=== PATIENT | female | born 1990 | race Caucasian/White ===

== ENCOUNTER 2022-10-31 10:08 | Emergency (ER) | payer BC ==
[2022-10-31 10:47] LABS: Bilirubin Neg (Negative); Blood, Urine 250 (Negative); Clarity Cloudy (Clear); Glucose, Urine (Dipstick) Normal (Negative); Ketone, Urine Negative (Negative); Leukocyte 25 (Negative); Nitrite Negative (Negative); Protein, Urine (Dipstick) 15 mg/dl (Neg-Trace); Specific Gravity, Urine 1.015 (1.005-1.030); Urobilinogen Normal mg/dL (Less than 2)
[2022-10-31] MEDS ORDERED: Acetaminophen 500 MG TAB ONE (11:11)
[2022-10-31 11:12] LABS: %Basophils 0.3 % (0.0-2.0); %Eosinophils 0.3 % (0.0-6.0); %Lymphocytes 30.6 % (18.0-47.0); %Monocytes 6.4 % (0.0-10.0); %Neutrophils 62.1 % (40.0-75.0); Hemoglobin 10.6 g/dL (12.0-15.5); Mean Corpuscular HGB CONC 34.8 g/dL (32.0-36.0); Mean Corpuscular Hemoglobin 31.1 pg (27.0-33.0); Mean Corpuscular Volume 89.4 fl (81.6-98.3); Mean Platelet Volume 11.3 fl (7.4-10.4); Platelet Count 126 10x3/uL (130-400); RBC Distribution Width 15.2 % (11.5-14.5); Red Blood Cell (RBC) Count 3.41 10x6/uL (3.90-5.03); White Blood Cell (WBC) Count 5.8 10x3/uL (3.5-10.5)
[2022-10-31 11:13] LABS: #Monocytes 0.4 10x3/uL (0.0-1.1); #Neutrophils 3.6 10x3/uL (1.5-8.4)
[2022-10-31 11:20] LABS: CAUTI Indications for Culture Pregnancy; Carbon Dioxide 21 mmol/L (22-29); Chloride 108 mmol/L (98-107); Potassium 3.4 mmol/L (3.5-5.1); RBC/HPF Greater than 50 HPF (0-3); Sodium 137 mmol/L (136-145)
[2022-10-31 11:21] LABS: Albumin 3.3 g/dL (3.5-5.0); Alkaline Phosphatase 42 U/L (40-110); Anion Gap 11 mmol/L (10-20); BUN (Urea Nitrogen) 9 mg/dL (7.0-18.7); Bacteria/HPF Rare-Few HPF (None Seen); Bilirubin, Total 0.2 mg/dL (0.2-1.2); Calc. Creatinine Clearance 0 mL/min (70-130); Calcium 8.4 mg/dL (7.6-10.4); Estimated GFR 120; Globulin 2.7 g/dL (2.4-3.5); Glucose 92 mg/dL (70-105)
[2022-10-31 11:22] LABS: ALT (SGPT) 20 U/L (8-55); AST (SGOT) 21 U/L (5-34)
[2022-10-31 11:23] LABS: Urine Culture Reflex Yes Yes
[2022-10-31] MEDS ORDERED: Morphine 4 MG/ML VIAL ONE (12:57)
[2022-10-31] MEDS ORDERED: Ondansetron PF 4 MG/2 ML Vial ONE (12:57)
[2022-10-31 13:11] LABS: Bilirubin Neg (Negative); Blood, Urine 150 (Negative); Clarity Clear (Clear); Glucose, Urine (Dipstick) Normal (Negative); Ketone, Urine 5 mg/dL (Negative); Leukocyte Negative (Negative); Nitrite Negative (Negative); Protein, Urine (Dipstick) 30 mg/dl (Neg-Trace); Specific Gravity, Urine 1.015 (1.005-1.030); Urobilinogen Normal mg/dL (Less than 2)
[2022-10-31 13:44] LABS: Bacteria/HPF Rare-Few HPF (None Seen); CAUTI Indications for Culture Pelvic or flank pain; WBC/HPF 0-3 HPF (0-3)
[2022-10-31 13:45] LABS: Urine Culture Reflex No No
== END 2022-10-31 14:38 | disposition home or self-care (01) ==
LOC: CSHERS 10:08
DX: O99.612 Diseases of the digestive system complicating pregnancy, second trimester (principal); Z3A.21 21 weeks gestation of pregnancy
CPT/HCPCS: 76770; 80053; 81001; 85025; 86140; 87086; 96361; 96374; 96375; J2270; J2405

== ENCOUNTER 2023-03-14 08:33 | Inpatient (IN) | payer BC ==
[2023-03-14] MEDS ORDERED: Diphenoxylate HCl/Atropine Tablet PO PRN ×2 (09:02)
[2023-03-14] MEDS ORDERED: Promethazine HCl 25 MG/ML VIAL IM PRN ×2 (09:02→10:10)
[2023-03-14] MEDS ORDERED: Ibuprofen 800 MG TAB PO PRN (09:02)
[2023-03-14] MEDS ORDERED: HYDROcodone/Acetaminophen 5/325 mg Tablet PO PRN ×2 (09:02)
[2023-03-14] MEDS ORDERED: Ondansetron PF 4 MG/2 ML Vial IVP PRN ×3 (09:02→19:24)
[2023-03-14] MEDS ORDERED: Carboprost 250 MCG/ML AMP IM PRN (09:02)
[2023-03-14] MEDS ORDERED: Lidocaine 1% (PF) 30 ML VIAL SC PRN (09:02)
[2023-03-14] MEDS ORDERED: Misoprostol 200 MCG TAB PR PRN (09:02)
[2023-03-14] MEDS ORDERED: Methylergonovine 0.2 MG/ML VIAL IM PRN (09:02)
[2023-03-14] MEDS ORDERED: hydrALAZINE 20 MG/ML VIAL SLOW IVP PRN ×2 (09:02→19:24)
[2023-03-14] MEDS ORDERED: fentaNYL 50 mcg/mL 1 mL Vial SLOW IVP PRN (09:02)
[2023-03-14] MEDS ORDERED: fentaNYL/Ropivacaine Epidural 100 ML ONE (09:05)
[2023-03-14] MEDS ORDERED: Oxytocin 30 units/NS 500 ML 500 ML ONE (09:06)
[2023-03-14] MEDS ORDERED: Oxytocin 30 units/NS 500 ML 500 ML IV SCH (09:15)
[2023-03-14 09:20] VITALS: BMI 25.5
[2023-03-14] MEDS ORDERED: ePHEDrine Sulfate 50 MG/10 ML VIAL SLOW IVP PRN (10:10)
[2023-03-14] MEDS ORDERED: Acetaminophen 325 MG TAB PO PRN (10:10)
[2023-03-14] MEDS ORDERED: Lactated Ringer's 500 ML IV PRN (10:10)
[2023-03-14] MEDS ORDERED: Naloxone HCl 0.4 mg/ml Vial IVP PRN ×2 (10:10)
[2023-03-14] MEDS ORDERED: Moisturizing Cream (Eucerin) 113 GM JAR TOP PRN (10:10)
[2023-03-14] MEDS ORDERED: diphenhydrAMINE 50 MG/ML VIAL IVP PRN (10:10)
[2023-03-14] MEDS ORDERED: fentaNYL 2 mcg/Ropivacaine 0.2% Epidural 100 ML CADD EPIDURAL SCH (10:15)
[2023-03-14] MEDS ORDERED: Communication Order-Pharmacy FS SCH (10:15)
[2023-03-14 10:23] LABS: Hematocrit 37.1 % (34.9-44.5); Hemoglobin 12.8 g/dL (12.0-15.5); Mean Corpuscular HGB CONC 34.5 g/dL (32.0-36.0); Mean Corpuscular Hemoglobin 31.3 pg (27.0-33.0); Mean Corpuscular Volume 90.7 fl (81.6-98.3); Mean Platelet Volume 12.6 fl (7.4-10.4); Platelet Count 111 10x3/uL (150-450); RBC Distribution Width 13.4 % (11.5-14.5); Red Blood Cell (RBC) Count 4.09 10x6/uL (3.90-5.03); White Blood Cell (WBC) Count 8.6 10x3/uL (3.5-10.5)
[2023-03-14 12:41] LABS: Syphilis Antibody Nonreactive (Nonreactive); Syphilis Antibody Index 0.06 S/CO (<1.00 Non-Reactive)
[2023-03-14 12:42] LABS: HBSAg Index 0.18 S/CO (0-0.99); Hep B Surf Ag - L&D Non-Reactive S/CO (NonReactive)
[2023-03-14] MEDS: Lactated Ringer's 1,000 ML IV SCH (17:43)
[2023-03-14] MEDS ORDERED: Boostrix 0.5 ML (Tdap) VIAL (>/=7 yrs of age) IM ONE (19:24)
[2023-03-14] MEDS ORDERED: Milk Of Magnesia 30 ML UDCUP PO PRN (19:24)
[2023-03-14] MEDS ORDERED: Bisacodyl 10 MG SUPP PR PRN (19:24)
[2023-03-14] MEDS: Ibuprofen 800 MG TAB PO SCH (21:57)
[2023-03-14] MEDS: Docusate 100 MG CAP PO SCH (21:58)
[2023-03-15] MEDS: Ibuprofen 800 MG TAB PO SCH ×2 (05:07→13:55)
[2023-03-15] MEDS: Lactated Ringer's 1,000 ML IV SCH ×2 (07:23→09:41)
[2023-03-15] MEDS ORDERED: Ferrous Sulfate 325 MG TAB PO SCH (08:00)
[2023-03-15] MEDS: Docusate 100 MG CAP PO SCH (08:48)
[2023-03-15] MEDS ORDERED: Prenatal Vitamin 1 TAB PO SCH (09:00)
[2023-03-15 11:03] VITALS: BP 120/68; TEMP 98.1
== END 2023-03-15 16:15 | disposition home or self-care (01) | DRG 807 ==
LOC: CSHLD/OP 08:33 → CSHLD 08:59 → CSHPED 15:40
PROVIDERS: ADMIT Obstetrics & Gynecology; ATTEND Obstetrics & Gynecology
PROC: 10E0XZZ Delivery of Products of Conception, External Approach (ICD-10-PCS; principal; 2023-03-14)
DX: O48.0 Post-term pregnancy (principal); Z37.0 Single live birth; Z3A.40 40 weeks gestation of pregnancy
CPT/HCPCS: 36415; 85027; 86780; 86850; 86900; 86901; 87340